=== PATIENT | male | born 1945 | race Caucasian/White ===

== ENCOUNTER → 2016-10-02 | Outpatient (CLI) | payer MEDICARE ==
[2016-10-02 10:19] LABS: HEMOGLOBIN 14.9 gm/dl (14.0-17.5); RED BLOOD COUNT 5.27 M/UL (4.20-5.50); WHITE BLOOD COUNT 5.9 K/UL (4.5-11.0)
[2016-10-02 10:43] LABS: BUN/CREATININE RATIO 16 (0-10)
== END ==
LOC: LBRF 09:55
PROVIDERS: Family Medicine
DX: G40.909 Epilepsy, unspecified, not intractable, without status epilepticus (principal); E78.5 Hyperlipidemia, unspecified; E03.9 Hypothyroidism, unspecified
CPT/HCPCS: 80048; 80076; 80184; 84443; 85027

== ENCOUNTER 2016-10-17 13:55 | Emergency (ER) | payer MEDICARE | END 2016-10-17 15:38 | disposition home or self-care (01) | LOC: ER1 13:55 | DX: S61.412A Laceration without foreign body of left hand, initial encounter (principal); Z88.0 Allergy status to penicillin; W20.8XXA Other cause of strike by thrown, projected or falling object, initial encounter; Y92.009 Unspecified place in unspecified non-institutional (private) residence as the place of occurrence of the external cause; Z23 Encounter for immunization | CPT/HCPCS: 73130; 90471; 90715; 99283 ==

== ENCOUNTER → 2020-07-10 | Outpatient (CLI) | payer MEDICARE ==
[~2020-07-10] MED LIST: FLOMAX 0.4 MG0.4 MG PO; LEVOFLOXACIN750 MG PO; PROTONIX 40 MG40 M1 PO
[2020-07-10 14:31] LABS: HEMOGLOBIN 14.4 gm/dl (14.0-17.5); RED BLOOD COUNT 5.16 M/UL (4.20-5.50); WHITE BLOOD COUNT 5.6 K/UL (4.5-11.0)
[2020-07-10 15:43] LABS: BUN/CREATININE RATIO 23 (0-10)
== END ==
LOC: LAB 14:10
PROVIDERS: Family Medicine
DX: I10 Essential (primary) hypertension (principal); G40.909 Epilepsy, unspecified, not intractable, without status epilepticus
CPT/HCPCS: 80053; 80061; 80184; 85025

== ENCOUNTER 2020-08-29 22:42 | Emergency (ER) | payer MEDICARE ==
[2020-08-29 23:13] LABS: HEMOGLOBIN 15.1 gm/dl (14.0-17.5); RED BLOOD COUNT 5.24 M/UL (4.20-5.50); WHITE BLOOD COUNT 13.6 K/UL (4.5-11.0)
[2020-08-29 23:28] LABS: BUN/CREATININE RATIO 23 (0-10)
[2020-08-30] MEDS ORDERED: LEVOFLOXACIN750 MG PO (01:02)
[2020-08-30] MEDS ORDERED: FLOMAX 0.4 MG0.4 MG PO (01:08)
[2020-08-30] MEDS ORDERED: PROTONIX 40 MG40 M1 PO (01:08)
== END 2020-08-30 01:29 | disposition home or self-care (01) ==
LOC: ER1 22:42
PROVIDERS: Family Medicine
DX: N39.0 Urinary tract infection, site not specified (principal); R60.0 Localized edema; I10 Essential (primary) hypertension; Z20.822 Contact with and (suspected) exposure to COVID-19; Z88.0 Allergy status to penicillin; Z88.5 Allergy status to narcotic agent
CPT/HCPCS: 0240U; 36415; 71045; 80053; 81001; 83605; 83735; 84100; 85025; 86140; 87040; 87077; 87086; 87186; 93005; 96365; 96375; 99284; C9113; J1885; J1956

== ENCOUNTER → 2020-11-02 | Outpatient (CLI) | payer MEDICARE ==
[2020-11-02 15:42] LABS: BUN/CREATININE RATIO 17 (0-10)
== END ==
LOC: LAB 14:56
PROVIDERS: Family Medicine
DX: I10 Essential (primary) hypertension (principal)
CPT/HCPCS: 80048

== ENCOUNTER 2021-10-21 17:00 | Emergency (ER) | payer MEDICARE ==
[2021-10-21 17:31] LABS: HEMOGLOBIN 13.5 gm/dl (14.0-17.5); RED BLOOD COUNT 4.61 M/UL (4.20-5.50); WHITE BLOOD COUNT 9.6 K/UL (4.5-11.0)
[2021-10-21 18:09] LABS: BUN/CREATININE RATIO 35 (0-10)
[2021-10-21] MEDS ORDERED: PROVENTIL HFA6.7 GM INH (19:05)
[2021-10-21] MEDS ORDERED: LEVOFLOXACIN500 MG PO (19:05)
== END 2021-10-21 21:25 | disposition home or self-care (01) ==
LOC: ER1 17:00
PROVIDERS: Emergency Medicine
DX: J40 Bronchitis, not specified as acute or chronic (principal); I10 Essential (primary) hypertension; R09.02 Hypoxemia; Z20.822 Contact with and (suspected) exposure to COVID-19
CPT/HCPCS: 0240U; 71045; 80053; 81001; 82550; 82553; 83605; 83880; 84484; 85025; 87040; 93005; 96374; 99285; J1100

== ENCOUNTER 2021-12-18 17:25 | Emergency (ER) | payer MEDICARE ==
[~2021-12-18 17:25] MED LIST changes: +LEVOFLOXACIN500 MG PO; +PROVENTIL HFA6.7 GM INH
[2021-12-18 19:43] LABS: HEMOGLOBIN 16.2 gm/dl (14.0-17.5); RED BLOOD COUNT 5.62 M/UL (4.20-5.50); WHITE BLOOD COUNT 16.6 K/UL (4.5-11.0)
[2021-12-18 20:30] LABS: BUN/CREATININE RATIO 37 (0-10)
[2021-12-20 08:16] LABS: HBSAG SCREEN Negative (Negative); HCV AB 0.2 (0.0-0.9); HEP A AB, IGM Negative (Negative); HEP B CORE AB, IGM Negative (Negative)
== END 2021-12-19 00:20 | disposition short-term general hospital (02) ==
LOC: ER1 17:25
PROVIDERS: Family Medicine
DX: A41.9 Sepsis, unspecified organism (principal); D72.829 Elevated white blood cell count, unspecified; K80.20 Calculus of gallbladder without cholecystitis without obstruction; R79.89 Other specified abnormal findings of blood chemistry; N28.9 Disorder of kidney and ureter, unspecified; I10 Essential (primary) hypertension; Z20.822 Contact with and (suspected) exposure to COVID-19; Z88.0 Allergy status to penicillin; Z88.8 Allergy status to other drugs, medicaments and biological substances; Z79.82 Long term (current) use of aspirin
CPT/HCPCS: 0240U; 71045; 74150; 80053; 80074; 81001; 83605; 83735; 84100; 85025; 85610; 87040; 87077; 87086; 87186; 96361; 96374; 96375; 99285; J1335; J2405

== ENCOUNTER 2022-02-05 05:46 | Inpatient (IN) | payer MEDICARE ==
[~2022-02-05] VITALS: Ht 177.8 cm; Wt 106.6 kg
[2022-02-05 06:33] LABS: HEMOGLOBIN 13.3 gm/dl (14.0-17.5); RED BLOOD COUNT 4.8 M/UL (4.20-5.50); WHITE BLOOD COUNT 10.4 K/UL (4.5-11.0)
[2022-02-05 07:00] LABS: BUN/CREATININE RATIO 18 (0-10)
[2022-02-05] MEDS ORDERED: FLOMAX 0.4 MG0.4 MG PO (14:49)
[2022-02-05] MEDS ORDERED: HYDROCODON-ACE1 EAC2 PO (14:49)
[2022-02-05] MEDS ORDERED: ATIVAN 1MG TABLE1 MG PO (14:49)
[2022-02-05] MEDS ORDERED: PHENOBARBITAL64.8 MG PO (14:49)
[2022-02-05] MEDS ORDERED: HYDRALAZINE HCL10 MG PO (14:50)
[2022-02-05] MEDS ORDERED: POTASSIUM CHLO10 ME1 PO (14:50)
[2022-02-05] MEDS ORDERED: HYDROXYZINE HCL50 MG PO (14:51)
[2022-02-05] MEDS ORDERED: HYDROXYZINE HCL25 MG PO (14:51)
[2022-02-05] MEDS ORDERED: LORATADINE10 MG PO (14:51)
[2022-02-05] MEDS ORDERED: LASIX20 MG PO (14:52)
[2022-02-05] MEDS ORDERED: LOSARTAN POTAS100 MG PO (14:52)
[2022-02-06 04:44] LABS: HEMOGLOBIN 13.3 gm/dl (14.0-17.5); RED BLOOD COUNT 4.79 M/UL (4.20-5.50); WHITE BLOOD COUNT 14.1 K/UL (4.5-11.0)
[2022-02-06 05:22] LABS: BUN/CREATININE RATIO 33 (0-10)
[2022-02-06 12:19] LABS: CANDIDA ALBICANS Not Detected (Negative); CANDIDA KRUSEI Not Detected (Negative); CANDIDA TROPICALIS Not Detected (Negative); ESCHERICHIA COLI Not Detected (Negative); HAEMOPHILUS INFLUENZAE Not Detected (Negative); KLEBSIELLA OXYTOCA Not Detected (Negative); KLEBSIELLA PNEUMONIAE Not Detected (Negative); KPC-CARBAPENEM-RESISTANCE GENE Not Detected (Negative); PROTEUS Not Detected (Negative); PSEUDOMONAS AERUGINOSA Not Detected (Negative); SERRATIA MARCESANS Not Detected (Negative); STAPHYLOCOCCUS Not Detected (Negative); STAPHYLOCOCCUS AUREUS Not Detected (Negative); STREP AGALACTIAE (GROUP B) Not Detected (Negative); STREP PYOGENES (GROUP A) Not Detected (Negative); vanA/B (VANCOMYCIN RESIST GENE Not Detected (Negative)
[2022-02-06 13:30] LABS: STREPTOCOCCUS DETECTED (Negative)
[2022-02-07 02:22] LABS: HEMOGLOBIN 12.8 gm/dl (14.0-17.5); RED BLOOD COUNT 4.61 M/UL (4.20-5.50); WHITE BLOOD COUNT 11.2 K/UL (4.5-11.0)
[2022-02-07 02:46] LABS: BUN/CREATININE RATIO 38 (0-10)
[2022-02-08 02:45] LABS: HEMOGLOBIN 11.3 gm/dl (14.0-17.5); RED BLOOD COUNT 4.17 M/UL (4.20-5.50); WHITE BLOOD COUNT 11.2 K/UL (4.5-11.0)
[2022-02-08 03:09] LABS: BUN/CREATININE RATIO 42 (0-10)
[2022-02-09] MEDS ORDERED: ELIQUIS5 M1 PO (13:04)
[2022-02-10 02:06] LABS: HEMOGLOBIN 10.8 gm/dl (14.0-17.5); RED BLOOD COUNT 3.93 M/UL (4.20-5.50); WHITE BLOOD COUNT 9.7 K/UL (4.5-11.0)
[2022-02-10 02:30] LABS: BUN/CREATININE RATIO 30 (0-10)
[2022-02-10 13:54] LABS: CANDIDA ALBICANS Not Detected (Negative); CANDIDA KRUSEI Not Detected (Negative); CANDIDA TROPICALIS Not Detected (Negative); ESCHERICHIA COLI Not Detected (Negative); HAEMOPHILUS INFLUENZAE Not Detected (Negative); KLEBSIELLA OXYTOCA Not Detected (Negative); KLEBSIELLA PNEUMONIAE Not Detected (Negative); KPC-CARBAPENEM-RESISTANCE GENE Not Detected (Negative); PROTEUS Not Detected (Negative); PSEUDOMONAS AERUGINOSA Not Detected (Negative); SERRATIA MARCESANS Not Detected (Negative); STAPHYLOCOCCUS AUREUS Not Detected (Negative); STREP AGALACTIAE (GROUP B) Not Detected (Negative); STREP PYOGENES (GROUP A) Not Detected (Negative); STREPTOCOCCUS Not Detected (Negative); vanA/B (VANCOMYCIN RESIST GENE Not Detected (Negative)
[2022-02-10 15:26] LABS: STAPHYLOCOCCUS DETECTED (Negative)
[2022-02-12 13:19] LABS: HEMOGLOBIN 10.8 gm/dl (14.0-17.5); RED BLOOD COUNT 3.86 M/UL (4.20-5.50)
[2022-02-12 14:01] LABS: BUN/CREATININE RATIO 9 (0-10)
[2022-02-14] MEDS ORDERED: ELIQUIS5 MG PO (11:15)
[2022-02-14] MEDS ORDERED: SENOKOT-S TABL1 EACH PO (11:20)
[2022-02-14] MEDS ORDERED: TOPROL XL25 MG PO (11:20)
[2022-02-14] MEDS ORDERED: CHRONULAC20 GM/30 M PO (11:20)
[2022-02-14 11:27] LABS: HEMOGLOBIN 10.8 gm/dl (14.0-17.5); RED BLOOD COUNT 3.95 M/UL (4.20-5.50); WHITE BLOOD COUNT 7.2 K/UL (4.5-11.0)
[2022-02-14 11:56] LABS: BUN/CREATININE RATIO 9 (0-10)
--- NOTE | 2022-02-15 01:33 | NUR ---
PATIENT DISCHARGED TO HOME AT 2130 PER ORDERS. PATIENT STABLE AT TIME OF DISCHARGE. PATIENT HAD RECIEVED NIGHTLY MEDICATION PER FAMILY REQUEST APPROXIMATELY ONE HOUR PRIOR TO DISCHARGE INCLUDING PRN PAIN MEDICATION. TRANSFER TO [facility] WAS EASY. PATIENT LEFT WITH NO COMPLAINTS, FAMILY TO FOLLOW. FAMILY SENT WITH DISCHARGE PAPERWORK, PRESCRIPTIONS, AND FOLLW UP INFORMATION.
== END 2022-02-14 21:30 | disposition home health service (06) | DRG 871 ==
LOC: ER1 05:46 → CDU 11:54 → PROG CARE 11:54
PROVIDERS: Internal Medicine; Internal Medicine Infectious Disease; Physician Assistant; Physician Assistant Medical; ADMIT Internal Medicine
PROC: 3E03329 Introduction of Other Anti-infective into Peripheral Vein, Percutaneous Approach (ICD-10-PCS; principal; 2022-02-06)
PROC: 0D9670Z Drainage of Stomach with Drainage Device, Via Natural or Artificial Opening (ICD-10-PCS; 2022-02-06)
PROC: B24BZZZ Ultrasonography of Heart with Aorta (ICD-10-PCS; 2022-02-12)
DX: A40.8 Other streptococcal sepsis (principal); G92.8 Other toxic encephalopathy; K85.10 Biliary acute pancreatitis without necrosis or infection; E87.2 Acidosis; K80.00 Calculus of gallbladder with acute cholecystitis without obstruction; K56.7 Ileus, unspecified; N17.9 Acute kidney failure, unspecified; I82.412 Acute embolism and thrombosis of left femoral vein; I82.432 Acute embolism and thrombosis of left popliteal vein; G40.909 Epilepsy, unspecified, not intractable, without status epilepticus; F03.90 Unspecified dementia, unspecified severity, without behavioral disturbance, psychotic disturbance, mood disturbance, and anxiety; I10 Essential (primary) hypertension; Z66 Do not resuscitate; M16.9 Osteoarthritis of hip, unspecified; R65.20 Severe sepsis without septic shock; Z20.822 Contact with and (suspected) exposure to COVID-19; E66.3 Overweight; L89.152 Pressure ulcer of sacral region, stage 2; K59.00 Constipation, unspecified; E80.6 Other disorders of bilirubin metabolism; G89.29 Other chronic pain; E87.6 Hypokalemia; N40.0 Benign prostatic hyperplasia without lower urinary tract symptoms; E86.0 Dehydration; Z98.890 Other specified postprocedural states; Z88.0 Allergy status to penicillin; Z74.01 Bed confinement status; Z88.8 Allergy status to other drugs, medicaments and biological substances; Z82.49 Family history of ischemic heart disease and other diseases of the circulatory system; Z79.899 Other long term (current) drug therapy; Z68.33 Body mass index [BMI] 33.0-33.9, adult
CPT/HCPCS: ECHO; 0240U; 36415; 70450; 71045; 76705; 80048; 80053; 80184; 81001; 82550; 82553; 83605; 83690; 83735; 83880; 84132; 84439; 84443; 84484; 85025; 85027; 86140; 87040; 87077; 87086; 87150; 87186; 93005; 93306; 93970; 93971; 94664; 94760; 96365; 96367; 96372; 96375; 96376; 99285; C9113; J0360; J0692; J1170; J1335; J1650; J1940; J2020; J2060; J2270; J2405; J3480; Q9967